=== PATIENT | female | born 1970 | race Caucasian/White ===

== ENCOUNTER 2017-01-26 01:04 | Emergency (ER) ==
[2017-01-26 01:04] VITALS: BMI 25.0
[2017-01-26 01:15] VITALS: BP 116/74; TEMP 97.9
[2017-01-26] MEDS ORDERED: PHENERGAN 25 MG/ML VIAL IM STA (01:51)
[2017-01-26] MEDS ORDERED: DEMEROL 50 MG/ML SYRINGE IM STA (01:51)
--- NOTE | 2017-01-26 01:55 | ED.PDOC ---
General ED Provider: Dr. CARMINA AVERY Chief Complaint: Back Pain Stated Complaint: patient is a 47 year old female who complaints of a 2 week history of left to middle back pain wth non productive cough. The back pain has become worse over the last 24 hours it is now constant and stabbing Time Seen by Physician: 01:53 Mode of Arrival: Walk-In Information Source: Patient Exam Limitations: No limitations Primary Care Provider[facility] Nursing and Triage Documentation Reviewed and Agree: Yes Review of Systems - Review Of Systems Constitutional: Reports: No symptoms Eyes: Reports: No symptoms Ears, Nose, Mouth, Throat: Reports: No symptoms Respiratory: Reports: No symptoms Cardiac: Reports: No symptoms GI: Reports: No symptoms : Reports: No symptoms Musculoskeletal: Reports: Back pain Skin: Reports: No symptoms Neurological: Reports: Anxiety Endocrine: Reports: No symptoms Hematologic/Lymphatic: Reports: No symptoms All Other Systems: Reviewed and Negative Past Medical History - Past Medical History Endocrine: Reports: None Cardiovascular: Reports: None Respiratory: Reports: None Hematological: Reports: None Gastrointestinal: Reports: None Genitourinary: Reports: None Neuro/Psych: Reports: Anxiety, Depression Musculoskeletal: Reports: Arthritis Cancer: Reports: None Last Menstrual Period: PT HAS HAD A HYSTERECTOMY - Surgical History General Surgical History: Reports: Hysterectomy (C SETIONS, HYSTERECTOMY, MECH IMPLANT), , Orthopedic (carple tunnel both wrist ) - Family History Family History: Reports: Unknown - Social History Smoking Status: Current every day smoker, Heavy tobacco smoker Hx Substance Use: No Alcohol Screening: None - Immunizations Tetanus Shot up to Date: (UNKNOWN) Physical Exam - Physical Exam Appearance: Ill-appearing Ill-appearing: Mild Pain Distress: Severe Neck: Supple Respiratory: Airway patent, Breath sounds diminished Cardiovascular: RRR, Pulses normal, No rub, No murmur GI/: Soft, Nontender, No masses, Bowel sounds normal, No Organomegaly Musculoskeletal: Normal strength, ROM intact, No edema, No calf tenderness Skin: Warm, Dry, Normal color Neurological: Sensation intact, Motor intact, Reflexes intact, Cranial nerves intact, Alert, Oriented Psychiatric: Anxious Interpretation - Radiology Interpretation Radiology Interpretation By: ED Physician Radiology Results: Positive Exam Interpreted: CXR (Left lower lobe infiltrate. ) Radiology Interpretation By: Radiologist Radiology Results: Positive (pneumoina/ 3 cm LLL mass) Exam Interpreted: CT Scan Re-Evaluation - Re-Evaluation Status: Improved Critical Care Note - Critical Care Note Total Time (mins): 10 Course - Course Hematology/Chemistry: 01/26/17 03:20 01/26/17 03:20 Orders, Labs, Meds: Lab Review 01/26/17 01/26/17 02:00 03:20 WBC 8.42 RBC 4.44 Hgb 13.1 Hct 39.1 MCV 88.1 MCH 29.5 MCHC 33.5 RDW Coeff of Fernando 12.5 Plt Count 321 Immature Gran % (Auto) 0.2 Neut % (Auto) 61.5 Lymph % (Auto) 25.8 [place] % (Auto) 7.0 Eos % (Auto) 4.8 Baso % (Auto) 0.7 Immature Gran # (Auto) 0.0 Neut # 5.2 Lymph # 2.2 [place] # 0.6 Eos # 0.4 Baso # 0.1 Sodium 139 Potassium 4.0 Chloride 101 Carbon Dioxide 26 Anion Gap 16.0 BUN 16 Creatinine 0.69 Estimated GFR (MDRD) 91.00 BUN/Creatinine Ratio 23.18 Glucose 115 H Lactic Acid 8.2 Calcium 9.5 Total Bilirubin 0.22 AST 13 L ALT 15 Alkaline Phosphatase 118 H Total Protein 8.0 Albumin 3.7 Globulin 4.3 Albumin/Globulin Ratio 0.86 Procalcitonin < 0.05 Urine Color Yellow Urine Clarity Clear Urine pH 5.5 Ur Specific [place] 1.025 Urine Protein Negative Urine Glucose (UA) Negative Urine Ketones Negative Urine Blood Trace-intact Urine Nitrite Negative Urine Bilirubin Negative Urine Urobilinogen 0.2 Ur Leukocyte Esterase Negative Urine Microscopic RBC 2-5 Ur Squamous Epith Cells 10-20 Amorphous Sediment 1+ Influenza A (Rapid) Negative Influenza B (Rapid) Negative Orders Category Date Time Status NPO REMINDER: IMAGING ONCE CARE 01/26/17 05:59 Completed NPO REMINDER: IMAGING ONCE CARE 01/26/17 06:03 Completed ED IV/MEDIPORT/POWERPORT .ONCE EMERGENCY 01/26/17 03:16 Active BLOOD CULTURE Stat LAB 01/26/17 03:20 Received CBC W/ AUTO DIFF Stat LAB 01/26/17 03:20 Completed COMPREHENSIVE METABOLIC PANEL Stat LAB 01/26/17 03:20 Completed LACTIC ACID Stat LAB 01/26/17 03:20 Completed MOLECULAR GROUP A STREP Stat LAB 01/26/17 03:20 Results PROCALCITONIN Stat LAB 01/26/17 03:20 Completed RAPID FLU A/B Stat LAB 01/26/17 03:20 Completed STREP SCREEN Stat LAB 01/26/17 03:20 Results UA [URINALYSIS C & S IF INDICATED] Stat LAB 01/26/17 02:00 Completed 0.9 % Sodium Chloride [Saline Flush] MEDS 01/26/17 03:16 Active 1 syr IVF PRN PRN Hydromorphone HCl [Dilaudid 1 mg/ml Syringe] MEDS 01/26/17 07:35 Stat 1 mg IVP ONCE STA Levofloxacin/D5w [Levaquin] 150 ml MEDS 01/26/17 03:15 Discontinued IV .STK-MED Levofloxacin/D5w [Levaquin] 750 mg MEDS 01/26/17 03:09 Discontinued Premix 150 ml D5w 1 bag IV ONCE Meperidine HCl/Pf [Demerol 50 mg/ml Syringe] MEDS 01/26/17 01:51 Discontinued 50 mg IM ONCE STA Morphine Sulfate [Morphine 4 mg/ml Syringe] MEDS 01/26/17 03:28 Discontinued 4 mg .ROUTE .STK-MED ONE Morphine Sulfate [Morphine 4 mg/ml Syringe] MEDS 01/26/17 03:27 Discontinued 4 mg IVP ONCE STA Promethazine HCl [Phenergan 25 mg/ml Vial] MEDS 01/26/17 01:51 Discontinued 25 mg IM ONCE STA Sodium Chloride 0.9% [Sodium Chloride] 1,000 ml MEDS 01/26/17 03:16 Discontinued IV BOLUS CHEST, 2 VIEWS PA & LAT Stat RADS 01/26/17 02:35 Completed CTA ANGIO CHEST Stat RADS 01/26/17 06:03 Completed Medications Generic Name Dose Route Start Last Admin Trade Name Freq PRN Reason Stop Dose Admin Hydromorphone HCl 1 mg 01/26/17 07:35 Dilaudid 1 Mg/Ml Syringe IVP 01/26/17 07:36 ONCE STA Sodium Chloride 1 syr 01/26/17 03:16 01/26/17 03:32 Saline Flush IVF 1 syr PRN PRN Administration To flush IV Discontinued Medications Generic Name Dose Route Start Last Admin Trade Name Freq PRN Reason Stop Dose Admin Levofloxacin/Dextrose 750 mg/ 150 mls @ 100 mls/hr 01/26/17 03:09 01/26/17 03 :37 Dextrose IV 01/26/17 04:38 100 mls/hr ONCE STA Administration Sodium Chloride 1,000 mls @ 1,000 mls/hr 01/26/17 03:16 01/26/17 03:32 Sodium Chloride IV 01/26/17 04:15 1,000 mls/hr BOLUS STA Administration Meperidine HCl 50 mg 01/26/17 01:51 01/26/17 02:04 Demerol 50 Mg/Ml Syringe IM 01/26/17 01:52 50 mg ONCE STA Administration Morphine Sulfate 4 mg 01/26/17 03:27 01/26/17 03:33 Morphine 4 Mg/Ml Syringe IVP 01/26/17 03:28 4 mg ONCE STA Administration Promethazine HCl 25 mg 01/26/17 01:51 01/26/17 02:04 Phenergan 25 Mg/Ml Vial IM 01/26/17 01:52 25 mg ONCE STA Administration Vital Signs: Temp Pulse Resp BP Pulse Ox 01/26/17 01:05 97.9 F 100 H 18 116/74 98 Departure - Departure Time of Disposition: 07:02 Disposition: HOME SELF-CARE Discharge Problem: Mass of lower lobe of left lung Pneumonia Qualifiers: Pneumonia type: due to unspecified organism Laterality: left Lung location: lower lobe of lung Qualifier Code: (J18.1) Lobar pneumonia, unspecified organism Instructions: Bacterial Pneumonia (ED) Condition: Fair Pt referred to PMD for follow-up: Yes Additional Instructions: push fluids Take amitotics as prescribed Follow up with PCP in 3 days. Must follow up with Lung doctor for left lower lung mass. Prescriptions: Hydrocodone/Acetaminophen [[place] 5-325 Tablet] 1 tab PO Q6HR PRN #20 tablet PRN Reason: PAIN Levofloxacin [Levaquin] 500 mg PO DAILY #10 tablet Allergies/Adverse Reactions: Allergies aspirin Adverse Reaction (Verified 01/26/17 01:18) IMMEDIATE NOSE BLEED IMMEDIATE NOSE BLEED iron Adverse Reaction (Verified 01/26/17 01:18) Swelling SWELLING Home Medications: Ambulatory Orders Hydrocodone/Acetaminophen [[place] 5-325 Tablet] 1 tab PO Q6HR PRN #20 tablet 03/11 Ibuprofen 800 mg PO Q8H PRN 01/26/17 Levofloxacin [Levaquin] 500 mg PO DAILY #10 tablet 01/26/17 Disposition Discussed With: Patient, Family
[2017-01-26 02:11] LABS: BILIRUBIN,URINE Negative (NEGATIVE); KETONES,URINE Negative (NEGATIVE); LEUKOCYTE ESTERASE ,URINE Negative (NEGATIVE); NITRITE,URINE Negative (NEGATIVE); PH,URINE 5.5 (5-9); PROTEIN,URINE Negative (NEGATIVE); URINE, BLOOD Trace-intact (NEGATIVE)
[2017-01-26 02:14] LABS: ADD URINE MICROSCOPIC YES
[2017-01-26] MEDS ORDERED: LEVAQUIN 750 MG in PREMIX 150 ML D5W 1 BAG IV STA (03:09)
[2017-01-26] MEDS ORDERED: LEVAQUIN 150 ML IV ONE (03:15)
[2017-01-26] MEDS ORDERED: SODIUM CHLORIDE 1,000 ML IV STA (03:16)
[2017-01-26 03:27] LABS: BASOPHILS # (AUTO) 0.1 K/uL (0-0.2); BASOPHILS % (AUTO) 0.7 % (0.0-3.0); EOSINOPHILS # (AUTO) 0.4 K/ul (0.0-0.7); EOSINOPHILS % (AUTO) 4.8 % (0.0-7.0); HEMATOCRIT 39.1 % (37.0-47.0); HEMOGLOBIN 13.1 g/dl (12.0-16.0); IMMATURE GRANULOCYTE % (AUTO) 0.2 % (0.0-5.0); LYMPHOCYTES # (AUTO) 2.2 K/uL (0.60-3.4); LYMPHOCYTES % (AUTO) 25.8 (10.0-50.0); MEAN CORPUSCULAR HEMOGLOBIN 29.5 pg (27.0-31.0); MEAN CORPUSCULAR HGB CONC 33.5 (31.8-35.4); MEAN CORPUSCULAR VOLUME 88.1 fl (81.0-99.0); MONOCYTES # (AUTO) 0.6 K/uL (0.4-2.0); NEUTROPHILS # (AUTO) 5.2 K/ul (2.0-6.9); NEUTROPHILS % (AUTO) 61.5; PLATELET COUNT 321 10^3/uL (140-440); RED BLOOD COUNT 4.44 10^6/ul (4.20-5.40); WHITE BLOOD COUNT 8.42 K/ul (4.6-10.2)
[2017-01-26] MEDS ORDERED: MORPHINE 4 MG/ML SYRINGE IVP STA (03:27)
[2017-01-26] MEDS ORDERED: MORPHINE 4 MG/ML SYRINGE ONE (03:28)
[2017-01-26 03:46] LABS: ALBUMIN 3.7 g/dL (3.4-5.0); ALBUMIN/GLOBULIN RATIO 0.86; BILIRUBIN,TOTAL 0.22 mg/dL (0.00-1.20); BUN/CREATININE RATIO 23.18; CALCIUM 9.5 mg/dL (8.2-10.2); CREATININE 0.69 mg/dL (0.60-1.30)
[2017-01-26 03:47] LABS: FLU INTERNAL QC INTERNAL QC VALID; RAPID FLU A NEGATIVE (NEGATIVE); RAPID FLU B NEGATIVE (NEGATIVE)
--- NOTE | 2017-01-26 04:33 | DI ---
EXAM: Chest, two views, 01/26/2017 HISTORY: Cough COMPARISON: 01/30/2016 FINDINGS / IMPRESSION: Cardiomediastinal contours appear within normal limits. Dense left basilar opacity may relate to areas of atelectasis and/or pneumonia. Left pleural effusion is present. There is suggestion of additional opacity in the posterior aspect of the left upper lobe which is be st seen in the lateral projection. Left basilar opacities have worsened as compared to examination performed 01/30/2016. CT chest coul d also be considered for further characterization.
--- NOTE | 2017-01-26 07:31 | CT ---
EXAM: CT angiography chest HISTORY: Abnormal chest radiograph, cough COMPARISON: Radiograph chest same day TECHNIQUE: CT angiography chest performed with intravenous contrast. Coronal and sagittal reformat aurora images obtained. 3-D and MIP reformatted images created. FINDINGS: Thyroid and thoracic inlet appear normal. Heart is normal in size. No pericardial effus ion. Aorta normal in caliber. No aortic dissection. Small hiatal hernia. There are gallstones. Visualized portion upper abdomen demonstrates no acute abnormality. No acute abnormalities of the b ones. Central airway patent. There is a small loculated left pleural effusion. There is a area o f mass-like consolidation in the posterior medial aspect left lower lobe, measuring 3.2 cm image 38, possibly associated with a component of loculated pleural fluid. There is associated left hilar so ft tissue and left hilar lymphadenopathy measuring up to 1.6 cm, image 43. Mildly enlarged subcarin al lymph node measuring 1.1 cm. There are additional areas of atelectasis and/or consolidation in th e left upper lobe and left lower lobe. Mild right basilar atelectasis. Central airway patent. Gra nulomatous calcification present. N filling defects in the pulmonary arteries to suggest a pulmonar y embolism. IMPRESSION: 1. No pulmonary embolism. 2. Unexpected findin.2 cm area of mass-like consolidation left lower lobe. Differential diagn osis includes infection/pneumonia and malignancy. This is associated with a loculated left pleural effusion. Further evaluation is necessary. Consider PET CT, tissue sampling, or CT chest follow-up in 2 - 3 weeks following treatment. There are additional areas of pneumonia and/or atelectasis in the left lung. 3. Left hilar soft tissue/lymphadenopathy and mediastinal lymphadenopathy, likely related to #2. 4. Cholelithiasis Findings call to Dr. Parker 7:25 a.m. 01/26/2017
[2017-01-26] MEDS ORDERED: DILAUDID 1 MG/ML SYRINGE IVP STA (07:35)
== END 2017-01-26 08:21 | disposition home or self-care (01) ==
LOC: ED 01:04
DX: J18.1 Lobar pneumonia, unspecified organism (principal); F17.210 Nicotine dependence, cigarettes, uncomplicated
CPT/HCPCS: 36415; 80053; 81001; 83605; 84145; 85025; 87040; 87651; 87804; 87880; 96361; 96365; 96372; 96375; 99284

== ENCOUNTER 2017-02-02 01:44 | Emergency (ER) ==
[2017-02-02 01:55] VITALS: BP 126/78; TEMP 98.3; BMI 40.7
[2017-02-02] MEDS ORDERED: SODIUM CHLORIDE 1,000 ML IV STA (02:08)
[2017-02-02 02:23] LABS: BASOPHILS # (AUTO) 0.1 K/uL (0-0.2); EOSINOPHILS # (AUTO) 0.3 K/ul (0.0-0.7); EOSINOPHILS % (AUTO) 3.5 % (0.0-7.0); HEMATOCRIT 42.4 % (37.0-47.0); HEMOGLOBIN 14.3 g/dl (12.0-16.0); IMMATURE GRANULOCYTE % (AUTO) 0.1 % (0.0-5.0); LYMPHOCYTES # (AUTO) 2.2 K/uL (0.60-3.4); LYMPHOCYTES % (AUTO) 27.6 (10.0-50.0); MEAN CORPUSCULAR HEMOGLOBIN 29.5 pg (27.0-31.0); MEAN CORPUSCULAR HGB CONC 33.7 (31.8-35.4); MEAN CORPUSCULAR VOLUME 87.6 fl (81.0-99.0); MONOCYTES # (AUTO) 0.5 K/uL (0.4-2.0); MONOCYTES % (AUTO) 6.5 (0-10); NEUTROPHILS # (AUTO) 4.8 K/ul (2.0-6.9); NEUTROPHILS % (AUTO) 61.3; PLATELET COUNT 296 10^3/uL (140-440); RED BLOOD COUNT 4.84 10^6/ul (4.20-5.40)
[2017-02-02 02:43] LABS: ALBUMIN 3.8 g/dL (3.4-5.0); ALBUMIN/GLOBULIN RATIO 0.84; ANION GAP 14.1; BILIRUBIN,TOTAL 0.31 mg/dL (0.00-1.20); BUN/CREATININE RATIO 14.08; CALCIUM 9.7 mg/dL (8.2-10.2); CREATININE 0.71 mg/dL (0.60-1.30); POTASSIUM 4.1 mmol/L (3.5-5.10); TOTAL PROTEIN 8.3 g/dL (6.4-8.2)
[2017-02-02] MEDS ORDERED: ZOFRAN 4 MG/2 ML IVP STA (02:46)
[2017-02-02] MEDS ORDERED: MORPHINE 2 MG/ML SYRINGE IVP STA (02:46)
[2017-02-02 03:02] LABS: CREATINE KINASE 34 U/L
--- NOTE | 2017-02-02 03:09 | CT ---
Exam: CT angiography of the chest History: Cough Technique: [address] of the chest utilizing CT angiography protocol. Multiplanar and th ree-dimensional reformations were performed. FINDINGS: Technically adequate for evaluation of pulmonary arteries and aorta. There are no pulmon demetrio artery filling defects. Small left pleural effusion and adjacent atelectasis. Left hilar mass measures 3.2 x 3.5 cm. The right lung is clear. The heart and pericardium appear normal. The thor acic aorta appears normal. No acute findings of the upper abdomen. Multiple cholelithiasis noted. No acute findings of the chest wall. Impression: 1. Small pleural effusion and left lung mass. No interval change from 01/26/2017. 2. No evidence of pulmonary artery thrombus
[2017-02-02] MEDS ORDERED: DILAUDID 1 MG/ML SYRINGE IVP STA (03:38)
--- NOTE | 2017-02-02 03:41 | ED.PDOC ---
General ED Provider: Dr. ANITA NAVA-ER Chief Complaint: Back Pain Stated Complaint: my back hurts--i have a mass in my lung-- i will see the lung specialist on the of this month--it hurts Time Seen by Physician: 01:50 Mode of Arrival: Walk-In Information Source: Patient Exam Limitations: No limitations Nursing and Triage Documentation Reviewed and Agree: Yes Respiratory Complaint Exam - Respiratory Complaint/Exam Onset/Duration: several days Symptoms Are: Still present Timing: Constant Initial Severity: Mild Current Severity: Moderate Location: Chest Character: Reports: Non-productive cough Aggravating: Reports: None Alleviating: Reports: None Associated Signs and Symptoms: Denies: Rapid breathing, Dyspnea, Fever, Chills, Chest pain, Pleuritic chest pain, Wheezing, Hemoptysis, Dizziness, Calf pain, Calf swelling, Edema, URI, Nasal congestion, Hoarseness, Sinus discomfort, Vomiting, Sore throat, Weight loss, Decreased oral intake, Increased thirst, Increased appetite, Increased urination Related History: Reports: Similar episode (was here a few days ago) History of Healthcare-Acquired Pneumonia: No Cardiac Risk Factors: Reports: Smoking Tuberculosis Risk Factors: Reports: None Status Asthmaticus Risk Factors: Reports: None Home Oxygen Use: No Recent Stress Test: No Recent Echo/LV Function: No Current Antibiotic Use: Yes Current Asthma Medication Use: No Respiratory Distress: None Inadequate Respiratory Effort: No Dysphagia Present: No Stridor Present: No JVD Present: No Accessory Muscle Use: No Retractions: Not Present Diminished Breath Sounds: No Sinus Tenderness: None Grunting Respirations: No Kussmaul Respirations: No Differential Diagnoses: Pneumonia, URI, Other Review of Systems - Review Of Systems Constitutional: Reports: No symptoms Eyes: Reports: No symptoms Ears, Nose, Mouth, Throat: Reports: No symptoms Respiratory: Reports: No symptoms, Other Cardiac: Reports: No symptoms GI: Reports: No symptoms : Reports: No symptoms Musculoskeletal: Reports: Back pain Skin: Reports: No symptoms Neurological: Reports: No symptoms Endocrine: Reports: No symptoms Hematologic/Lymphatic: Reports: No symptoms All Other Systems: Reviewed and Negative Past Medical History - Past Medical History Endocrine: Reports: None Cardiovascular: Reports: None Respiratory: Reports: None Hematological: Reports: None Gastrointestinal: Reports: None Genitourinary: Reports: None Neuro/Psych: Reports: Anxiety, Depression Musculoskeletal: Reports: Arthritis Cancer: Reports: None Last Menstrual Period: 5-6 years ago/hysterectomy - Surgical History General Surgical History: Reports: Hysterectomy (C SETIONS, HYSTERECTOMY, MECH IMPLANT), , Orthopedic (carple tunnel both wrist ) - Family History Family History: Reports: Unknown - Social History Smoking Status: Current every day smoker, Heavy tobacco smoker Hx Substance Use: No Alcohol Screening: None - Immunizations Tetanus Shot up to Date: No (unsure) Physical Exam - Physical Exam Appearance: Well-appearing, No pain distress, Well-nourished Pain Distress: Moderate Eyes: SMITHA, EOMI, Conjunctiva clear ENT: Ears normal, Nose normal, Oropharynx normal Neck: Supple Respiratory: Airway patent, Breath sounds diminished Cardiovascular: RRR, Pulses normal, No rub, No murmur GI/: Soft Musculoskeletal: Normal strength Skin: Warm Neurological: Sensation intact Psychiatric: Affect appropriate Interpretation - Radiology Interpretation Radiology Interpretation By: Radiologist Radiology Results: Positive Exam Interpreted: CT Scan ("no change since 01/26---left lung mass") Re-Evaluation - Re-Evaluation Time of Re-Evaluation: 03:43 Status: Improved Vital Signs Stable: Yes Pain Level: 2 Appearance: NAD Lungs: Clear Skin: Warm and Dry Neuro: Alert and Oriented X3 CV: RRR Critical Care Note - Critical Care Note Total Time (mins): 0 Course - Course Hematology/Chemistry: 02/02/17 02:15 02/02/17 02:15 Orders, Labs, Meds: Lab Review 02/02/17 02:15 WBC 7.80 RBC 4.84 Hgb 14.3 Hct 42.4 MCV 87.6 MCH 29.5 MCHC 33.7 RDW Coeff of [place] 12.3 Plt Count 296 Immature Gran % (Auto) 0.1 Neut % (Auto) 61.3 Lymph % (Auto) 27.6 [place] % (Auto) 6.5 Eos % (Auto) 3.5 Baso % (Auto) 1.0 Immature Gran # (Auto) 0.0 Neut # 4.8 Lymph # 2.2 [place] # 0.5 Eos # 0.3 Baso # 0.1 Sodium 140 Potassium 4.1 Chloride 100 Carbon Dioxide 30 Anion Gap 14.1 BUN 10 Creatinine 0.71 Estimated GFR (MDRD) 88.00 BUN/Creatinine Ratio 14.08 Glucose 109 Calcium 9.7 Total Bilirubin 0.31 AST 26 ALT 55 Alkaline Phosphatase 128 H Total Creatine Kinase 34 Troponin I < 0.0100 Total Protein 8.3 H Albumin 3.8 Globulin 4.5 Albumin/Globulin Ratio 0.84 Amylase 44 Lipase 14 Orders Category Date Time Status EKG-(ED ONLY) Stat CARDIO 02/02/17 02:08 Ordered NPO REMINDER: IMAGING ONCE CARE 02/02/17 02:09 Completed ED IV/MEDIPORT/POWERPORT .ONCE EMERGENCY 02/02/17 02:08 Active AMYLASE Stat LAB 02/02/17 02:15 Completed CBC W/ AUTO DIFF Stat LAB 02/02/17 02:15 Completed COMPREHENSIVE METABOLIC PANEL Stat LAB 02/02/17 02:15 Completed CREATINE KINASE Stat LAB 02/02/17 02:15 Completed LIPASE Stat LAB 02/02/17 02:15 Completed TROPONIN I Stat LAB 02/02/17 02:15 Completed 0.9 % Sodium Chloride [Saline Flush] MEDS 02/02/17 02:08 Ordered 1 syr IVF PRN PRN Hydromorphone HCl [Dilaudid 1 mg/ml Syringe] MEDS 02/02/17 03:38 Stat 1 mg IVP ONCE STA Morphine Sulfate [Morphine 2 mg/ml Syringe] MEDS 02/02/17 02:46 Discontinued 2 mg IVP ONCE STA Ondansetron HCl/Pf [Zofran 4 mg/2 ml] MEDS 02/02/17 02:46 Discontinued 4 mg IVP ONCE STA Sodium Chloride 0.9% [Sodium Chloride] 1,000 ml MEDS 02/02/17 02:08 Active IV 100 mls/hr CT CHEST PE PROTOCOL Stat RADS 02/02/17 02:09 Completed Medications Generic Name Dose Route Start Last Admin Trade Name Freq PRN Reason Stop Dose Admin Sodium Chloride 1,000 mls @ 100 mls/hr 02/02/17 02:08 02/02/17 02:40 Sodium Chloride IV 02/02/17 12:07 100 mls/hr .Q10H STA Administration Sodium Chloride 1 syr 02/02/17 02:08 02/02/17 02:58 Saline Flush IVF 1 syr PRN PRN Administration To flush IV Discontinued Medications Generic Name Dose Route Start Last Admin Trade Name Freq PRN Reason Stop Dose Admin Morphine Sulfate 2 mg 02/02/17 02:46 02/02/17 02:58 Morphine 2 Mg/Ml Syringe IVP 02/02/17 02:47 2 mg ONCE STA Administration Ondansetron HCl 4 mg 02/02/17 02:46 02/02/17 02:55 Zofran 4 Mg/2 Ml IVP 02/02/17 02:47 4 mg ONCE STA Administration Vital Signs: Temp Pulse Resp BP Pulse Ox 02/02/17 01:46 98.3 F 97 H 20 126/78 94 L Departure - Departure Time of Disposition: 03:44 Disposition: HOME SELF-CARE Discharge Problem: Mass of lower lobe of left lung Instructions: Pulmonary Nodules (ED) Condition: Fair Pt referred to PMD for follow-up: Yes Additional Instructions: change antx to bactrim ds bid x 7days--percocet 7.5mg q 4hrs prn pain #20--keep appt with lung specialist this month.. Allergies/Adverse Reactions: Allergies aspirin Adverse Reaction (Verified 01/26/17 01:18) IMMEDIATE NOSE BLEED IMMEDIATE NOSE BLEED iron Adverse Reaction (Verified 01/26/17 01:18) Swelling SWELLING Home Medications: Ambulatory Orders Hydrocodone/Acetaminophen [[place] 5-325 Tablet] 1 tab PO Q6HR PRN #20 tablet 03/11 Ibuprofen 800 mg PO Q8H PRN 01/26/17 Levofloxacin [Levaquin] 500 mg PO DAILY #10 tablet 01/26/17 Disposition Discussed With: Patient
== END 2017-02-02 04:13 | disposition home or self-care (01) ==
LOC: ED 01:44
DX: R91.8 Other nonspecific abnormal finding of lung field (principal); M54.9 Dorsalgia, unspecified; F17.210 Nicotine dependence, cigarettes, uncomplicated
CPT/HCPCS: 36415; 80053; 82150; 82550; 83690; 84484; 85025; 93005; 93010; 96374; 96375; 99283

== ENCOUNTER 2017-02-28 19:02 | Emergency (ER) ==
[2017-02-28 19:08] VITALS: BP 137/87; TEMP 99.1; BMI 23.5
[2017-02-28] MEDS ORDERED: SODIUM CHLORIDE 500 ML IV STA (19:20)
[2017-02-28] MEDS ORDERED: MORPHINE 4 MG/ML SYRINGE IVP STA (19:22)
[2017-02-28] MEDS ORDERED: ZOFRAN 4 MG/2 ML IVP STA (19:22)
[2017-02-28 19:38] LABS: BASOPHILS # (AUTO) 0.1 K/uL (0-0.2); BASOPHILS % (AUTO) 0.7 % (0.0-3.0); EOSINOPHILS # (AUTO) 0.2 K/ul (0.0-0.7); EOSINOPHILS % (AUTO) 2.3 % (0.0-7.0); HEMATOCRIT 43.8 % (37.0-47.0); HEMOGLOBIN 14.8 g/dl (12.0-16.0); IMMATURE GRANULOCYTE % (AUTO) 0.3 % (0.0-5.0); LYMPHOCYTES # (AUTO) 1.8 K/uL (0.60-3.4); LYMPHOCYTES % (AUTO) 17.2 (10.0-50.0); MEAN CORPUSCULAR HEMOGLOBIN 29.4 pg (27.0-31.0); MEAN CORPUSCULAR HGB CONC 33.8 (31.8-35.4); MEAN CORPUSCULAR VOLUME 87.1 fl (81.0-99.0); MONOCYTES # (AUTO) 0.7 K/uL (0.4-2.0); MONOCYTES % (AUTO) 7.2 (0-10); NEUTROPHILS # (AUTO) 7.4 K/ul (2.0-6.9); NEUTROPHILS % (AUTO) 72.3; PLATELET COUNT 312 10^3/uL (140-440); RED BLOOD COUNT 5.03 10^6/ul (4.20-5.40); WHITE BLOOD COUNT 10.18 K/ul (4.6-10.2)
[2017-02-28 19:41] LABS: BILIRUBIN,URINE Negative (NEGATIVE); KETONES,URINE Negative (NEGATIVE); LEUKOCYTE ESTERASE ,URINE Negative (NEGATIVE); NITRITE,URINE Negative (NEGATIVE); PH,URINE 6.5 (5-9); PROTEIN,URINE Negative (NEGATIVE); URINE, BLOOD Negative (NEGATIVE)
[2017-02-28 19:44] LABS: ADD URINE MICROSCOPIC NO
[2017-02-28 20:08] LABS: ALANINE AMINOTRANSFERASE 43 U/L (12-78); ALBUMIN 3.9 g/dL (3.4-5.0); ALBUMIN/GLOBULIN RATIO 0.81; ALKALINE PHOSPHATASE 122 U/L (42-98); ANION GAP 14.1; ASPARTATE AMINO TRANSFERASE 18 U/L (15-37); BILIRUBIN,TOTAL 0.25 mg/dL (0.00-1.20); BLOOD UREA NITROGEN 14 mg/dL (7-18); BUN/CREATININE RATIO 19.17; CALCIUM 9.9 mg/dL (8.2-10.2); CARBON DIOXIDE 30 mmol/L (21-32); CHLORIDE 100 mmol/L (98-107); CREATINE KINASE 27 U/L; CREATININE 0.73 mg/dL (0.60-1.30); GLUCOSE 111 mg/dL (70-110); POTASSIUM 4.1 mmol/L (3.5-5.10); SODIUM 140 mmol/L (136-145); TOTAL PROTEIN 8.7 g/dL (6.4-8.2)
[2017-02-28] MEDS ORDERED: DILAUDID 1 MG/ML SYRINGE IVP STA (20:14)
--- NOTE | 2017-02-28 20:39 | CT ---
Exam: CT of the abdomen and pelvis without contrast History: Left flank pain Technique: [address] of the abdomen and pelvis without intravascular contrast FINDINGS: CT chest CT for lung base detail. No significant liver abnormality. The adrenals, pancrea s and spleen are unremarkable. The stomach and hiatus are unremarkable.Cholelithiasis without perich olecystic inflammation. Kidneys and proximal collecting system are unremarkable. The appendix is nor mal. Bowel loops demonstrate normal caliber. No inflamatory change seen in the mesentery or retroper itoneum. Vascular structures appear normal by noncontrast CT. Small fatty umbilical hernia without complicating features. Colonic diverticulosis of the sigmoid. No inflammation of the pelvic fat. Prior hysterectomy. No acute findings of the skeleton. Impression: 1. No inflammatory process, bowel or urinary obstruction is seen. 2. Cholelithiasis without CT evidence of cholecystitis 3. Colonic diverticulosis of the sigmoid
--- NOTE | 2017-02-28 20:46 | CT ---
EXAM: CT of the chest without contrast History: Left-sided flank pain, left chest pain and rib pain. Comparison: CT abdomen pelvis 02/28/2017, chest CT 07/05/2017 Technique: Multiplanar CT images through the thorax were obtained without the administration of IV contrast Findings: All the heart size is normal. Great vessels are grossly unremarkable on this limited non contrast exam. No significant interval change in the partially loculated left pleural effusion and left lower lobe mass-like area of consolidation. Infiltrates and atelectasis again seen within the lingula and left lower lobe. Calcified granulomas again seen within the thorax. No pathologically enlarged axillary lymph nodes. Evaluation for mediastinal and hilar lymph nodes is limited due to t he lack of contrast administration. For details in the upper abdomen, please see dedicated CT abdomen pelvis done on the same day. The visualized osseous structures unchanged. Impression: No significant interval change in the loculated left pleural effusion, left lung infilt rates and areas of atelectasis. Also no significant interval change in the mass-like area of consol idation within the left lower lobe. These findings could be related to infection or malignancy and recommend correlation with PET CT if not already performed.
--- NOTE | 2017-02-28 21:36 | ED.PDOC ---
General ED Provider: Dr. ANITA NAVA-ER Chief Complaint: Non-specific Complaint Stated Complaint: my chest is really hurting--i am supposed to go to [place] on the and get a biopsy but i am hurting so bad i cant sleep.--percocet is not helping Time Seen by Physician: 19:10 Mode of Arrival: Walk-In Information Source: Patient Exam Limitations: No limitations [facility] Nursing and Triage Documentation Reviewed and Agree: Yes Cardiovascular Complaint Exam - Chest Pain Complaint/Exam Onset: Gradual Duration: several days Symptoms Are: Still present Timing: Intermittent Initial Severity: Moderate Current Severity: Moderate Location: Reports: Discrete, Left lateral Pain Radiates: Reports: None Character: Reports: Dull, Aching, Pressure, Sharp, Stabbing Aggravating: Reports: Movement Alleviating: Reports: None Associated Signs and Symptoms: Denies: Diaphoresis, Nausea, Vomiting, Fever, Palpitations, Cough, Hemoptysis, Back pain, Abdominal pain, Dizziness, Short of air, Calf pain, Calf swelling Related History: Reports: Similar episode Related Surgical History: Reports: None History of Healthcare-Acquired Pneumonia: Reports: No AMI/ACS Risk Factors: Reports: Smoking Pulmonary Embolism Risk Factors: Reports: Smoking Prior Care for this Complaint: Yes Recent Stress Test: No Recent Echo/LV Function: No JVD Present: No Subcutaneous Emphysema Present: No Diminshed Breath Sounds: Yes Reproducible Chest Wall Pain: No Bilateral Pulses Present: Yes Unequal Pulses Noted: No 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 Differential Diagnoses: ACS, Chest Wall Pain Review of Systems - Review Of Systems Constitutional: Reports: No symptoms Eyes: Reports: No symptoms Ears, Nose, Mouth, Throat: Reports: No symptoms Respiratory: Reports: No symptoms Cardiac: Reports: Chest pain GI: Reports: No symptoms : Reports: No symptoms Musculoskeletal: Reports: No symptoms Skin: Reports: No symptoms Neurological: Reports: No symptoms Endocrine: Reports: No symptoms Hematologic/Lymphatic: Reports: No symptoms All Other Systems: Reviewed and Negative Past Medical History - Past Medical History Endocrine: Reports: None Cardiovascular: Reports: None Respiratory: Reports: None Hematological: Reports: None Gastrointestinal: Reports: None Genitourinary: Reports: None Neuro/Psych: Reports: Anxiety, Depression Musculoskeletal: Reports: Arthritis Cancer: Reports: None Last Menstrual Period: HYSTERECTOMY - Surgical History General Surgical History: Reports: Hysterectomy (C SETIONS, HYSTERECTOMY, MECH IMPLANT), , Orthopedic (carple tunnel both wrist ) - Family History Family History: Reports: Unknown - Social History Smoking Status: Current every day smoker, Heavy tobacco smoker Hx Substance Use: No Alcohol Screening: None Lives: With family Physical Exam - Physical Exam Appearance: Well-appearing Pain Distress: Moderate Eyes: SMITHA, EOMI, Conjunctiva clear ENT: Ears normal, Nose normal, Oropharynx normal Neck: Supple Respiratory: Airway patent Cardiovascular: RRR, Pulses normal, No rub, No murmur GI/: Soft, Nontender, No masses, Bowel sounds normal, No Organomegaly Musculoskeletal: Normal strength, ROM intact, No edema, No calf tenderness Skin: Warm, Dry, Normal color Neurological: Sensation intact, Motor intact, Reflexes intact, Cranial nerves intact, Alert, Oriented Psychiatric: Affect appropriate, Mood appropriate Interpretation - Radiology Interpretation Radiology Interpretation By: Radiologist Radiology Results: Positive Exam Interpreted: CT Scan ("3.5cm Left lower lobe mass with loculated pleural effusion") Physician Notification - Case Discussed Physician Notified: dr [email or web address] Time of Notification: 22:13 Critical Care Note - Critical Care Note Total Time (mins): 0 Course - Course Hematology/Chemistry: 02/28/17 19:30 02/28/17 19:30 Orders, Labs, Meds: Lab Review 02/28/17 19:30 WBC 10.18 RBC 5.03 Hgb 14.8 Hct 43.8 MCV 87.1 MCH 29.4 MCHC 33.8 RDW Coeff of Fernando 12.8 Plt Count 312 Immature Gran % (Auto) 0.3 Neut % (Auto) 72.3 Lymph % (Auto) 17.2 [place] % (Auto) 7.2 Eos % (Auto) 2.3 Baso % (Auto) 0.7 Immature Gran # (Auto) 0.0 Neut # 7.4 H Lymph # 1.8 [place] # 0.7 Eos # 0.2 Baso # 0.1 D-Dimer (Manual) 1409.33 Sodium 140 Potassium 4.1 Chloride 100 Carbon Dioxide 30 Anion Gap 14.1 BUN 14 Creatinine 0.73 Estimated GFR (MDRD) 85.00 BUN/Creatinine Ratio 19.17 Glucose 111 H Calcium 9.9 Total Bilirubin 0.25 AST 18 ALT 43 Alkaline Phosphatase 122 H Total Creatine Kinase 27 Troponin I < 0.0100 Total Protein 8.7 H Albumin 3.9 Globulin 4.8 Albumin/Globulin Ratio 0.81 Urine Color Yellow Urine Clarity Clear Urine pH 6.5 Ur Specific [place] 1.015 Urine Protein Negative Urine Glucose (UA) Negative Urine Ketones Negative Urine Blood Negative Urine Nitrite Negative Urine Bilirubin Negative Urine Urobilinogen 0.2 Ur Leukocyte Esterase Negative Orders Category Date Time Status EKG-(ED ONLY) Stat CARDIO 02/28/17 19:20 Completed ED IV/MEDIPORT/POWERPORT .ONCE EMERGENCY 02/28/17 19:20 Active CBC W/ AUTO DIFF Stat LAB 02/28/17 19:30 Completed COMPREHENSIVE METABOLIC PANEL Stat LAB 02/28/17 19:30 Completed CREATINE KINASE Stat LAB 02/28/17 19:30 Completed D-DIMER Stat LAB 02/28/17 19:30 Completed TROPONIN I Stat LAB 02/28/17 19:30 Completed URINALYSIS C & S IF INDICATED Stat LAB 02/28/17 19:30 Completed 0.9 % Sodium Chloride [Saline Flush] MEDS 02/28/17 19:20 Ordered 1 syr IVF PRN PRN Hydromorphone HCl [Dilaudid 1 mg/ml Syringe] MEDS 02/28/17 20:14 Discontinued 1 mg IVP ONCE STA Morphine Sulfate [Morphine 4 mg/ml Syringe] MEDS 02/28/17 19:22 Discontinued 4 mg IVP ONCE STA Ondansetron HCl/Pf [Zofran 4 mg/2 ml] MEDS 02/28/17 19:22 Discontinued 4 mg IVP ONCE STA Sodium Chloride 0.9% [Sodium Chloride] 500 ml MEDS 02/28/17 19:20 Active IV 30 mls/hr CT ABDOMEN/PELVIS WO CONTRAST Stat RADS 02/28/17 19:[address] CHEST W/O CONTRAST Stat RADS 02/28/17 19:22 Completed Medications Generic Name Dose Route Start Last Admin Trade Name Freq PRN Reason Stop Dose Admin Sodium Chloride 500 mls @ 30 mls/hr 02/28/17 19:20 02/28/17 19:44 Sodium Chloride IV 03/01/17 11:59 30 mls/hr .[id number] STA Administration Sodium Chloride 1 syr 02/28/17 19:20 Saline Flush IVF PRN PRN To flush IV Discontinued Medications Generic Name Dose Route Start Last Admin Trade Name Freq PRN Reason Stop Dose Admin Hydromorphone HCl 1 mg 02/28/17 20:14 02/28/17 20:30 Dilaudid 1 Mg/Ml Syringe IVP 02/28/17 20:15 1 mg ONCE STA Administration Morphine Sulfate 4 mg 02/28/17 19:22 02/28/17 19:43 Morphine 4 Mg/Ml Syringe IVP 02/28/17 19:23 4 mg ONCE STA Administration Ondansetron HCl 4 mg 02/28/17 19:22 02/28/17 19:44 Zofran 4 Mg/2 Ml IVP 02/28/17 19:23 4 mg ONCE STA Administration Vital Signs: Temp Pulse Resp BP Pulse Ox 02/28/17 19:04 99.1 F 122 H 20 137/87 92 L GENI Risk Score GENI Risk Score: Risk Score Odds of by 30D 0 0.1 (0.1-0.2) 1 0.3 (0.2-0.3) 2 0.4 (0.3-0.5) 3 0.7 (0.6-0.9) 4 1.2 (1.0-1.5) 5 2.2 (1.9-2.6) 6 3.0 (2.5-3.6) 7 4.8 (3.8-6.1) Departure - Departure Time of Disposition: 22:14 Disposition: TSF SHORT-TRM HOSP Discharge Problem: Lung mass Instructions: Soft Tissue Mass (ED) Condition: Good Pt referred to PMD for follow-up: No Allergies/Adverse Reactions: Allergies aspirin Adverse Reaction (Verified 02/28/17 19:08) IMMEDIATE NOSE BLEED IMMEDIATE NOSE BLEED iron Adverse Reaction (Verified 02/28/17 19:08) Swelling SWELLING Home Medications: Ambulatory Orders 1 [No Reported Medications] 02/28/17 Transfer Form Completed: Yes Disposition Discussed With: Patient
[2017-03-01] MEDS: DILAUDID 1 MG/ML SYRINGE IVP PRN ×3 (00:16→07:45)
== END 2017-03-01 08:38 | disposition short-term general hospital (02) ==
LOC: ED 19:02
DX: R91.8 Other nonspecific abnormal finding of lung field (principal); R07.9 Chest pain, unspecified; F17.210 Nicotine dependence, cigarettes, uncomplicated
CPT/HCPCS: 36415; 80053; 81001; 82550; 84484; 85025; 85379; 93005; 93010; 96374; 96375; 96376; 99285

== ENCOUNTER 2017-03-01 08:32 | Outpatient (CLI) ==
[2017-02-28 19:08] VITALS: BMI 23.5
== END 2017-03-01 08:33 ==
LOC: AMBL 08:32
PROVIDERS: ATTEND Internal Medicine
DX: R07.89 Other chest pain (principal); R06.02 Shortness of breath; R51 Headache; R91.8 Other nonspecific abnormal finding of lung field

== ENCOUNTER 2017-03-14 10:12 | Emergency (ER) ==
[2017-03-14 10:22] VITALS: BP 129/89; TEMP 97.8; BMI 24.1
[2017-03-14 10:48] LABS: BASOPHILS # (AUTO) 0.1 K/uL (0-0.2); BASOPHILS % (AUTO) 0.8 % (0.0-3.0); EOSINOPHILS # (AUTO) 0.2 K/ul (0.0-0.7); EOSINOPHILS % (AUTO) 2.5 % (0.0-7.0); HEMATOCRIT 42.1 % (37.0-47.0); HEMOGLOBIN 14.5 g/dl (12.0-16.0); IMMATURE GRANULOCYTE % (AUTO) 0.3 % (0.0-5.0); LYMPHOCYTES # (AUTO) 1.3 K/uL (0.60-3.4); LYMPHOCYTES % (AUTO) 14.3 (10.0-50.0); MEAN CORPUSCULAR HEMOGLOBIN 29.9 pg (27.0-31.0); MEAN CORPUSCULAR HGB CONC 34.4 (31.8-35.4); MEAN CORPUSCULAR VOLUME 86.8 fl (81.0-99.0); MONOCYTES # (AUTO) 0.6 K/uL (0.4-2.0); NEUTROPHILS # (AUTO) 6.9 K/ul (2.0-6.9); NEUTROPHILS % (AUTO) 75.1; PLATELET COUNT 350 10^3/uL (140-440); RED BLOOD COUNT 4.85 10^6/ul (4.20-5.40); WHITE BLOOD COUNT 9.18 K/ul (4.6-10.2)
[2017-03-14 11:01] LABS: ALBUMIN 3.7 g/dL (3.4-5.0); ALBUMIN/GLOBULIN RATIO 0.84; BILIRUBIN,TOTAL 0.34 mg/dL (0.00-1.20); BUN/CREATININE RATIO 17.39; CALCIUM 9.8 mg/dL (8.2-10.2); CREATININE 0.69 mg/dL (0.60-1.30); TOTAL PROTEIN 8.1 g/dL (6.4-8.2)
--- NOTE | 2017-03-14 11:13 | DI ---
EXAM: Chest two views HISTORY: Cough, recent lung biopsy COMPARISON: CT 02/28/2017 TECHNIQUE: Two views of the chest were performed FINDINGS: There is a loculated left pleural effusion and left basilar consolidation. No pneumothora x. The heart is normal in size. The mediastinal contour is normal. There are no acute abnormaliti es of the bones. IMPRESSION: Loculated left pleural effusion with with left basilar consolidation. Mass-like consol idation was demonstrated on CT 02/28/2017. Differential diagnosis includes infection/pneumonia and malignancy.
--- NOTE | 2017-03-14 11:53 | ED.PDOC ---
General ED Provider: Dr. MARLA MERLOS Chief Complaint: Non-specific Complaint Stated Complaint: weakness Time Seen by Physician: 10:13 Mode of Arrival: Walk-In Information Source: Patient Exam Limitations: No limitations Nursing and Triage Documentation Reviewed and Agree: Yes Miscellaneous Complaint Exam - Complex/Multi-System Complaint/Exam Onset/Duration: biopsy for a lung lesion since biopsy had been feeling weak Symptoms Are: Still present Initial Severity: Mild Current Severity: None Associated Signs and Symptoms: Denies: Decreased responsiveness, Confusion, Agitation, Dizziness, Weakness, Syncope, Headache, Short of air, Cough, Wheezing , Hemoptysis, Chest pain, Palpitations, Edema, Nausea, Vomiting, Diarrhea, Abdominal pain, Back pain, Dysuria, Hematemesis, Melena, Decreased oral intake, Fever, Diaphoresis, Immunocompromised, Anticoagulation Therapy, Recent medication changes, Indwelling medical insurance coding specialist, Prior MRSA, Prior VRE, Recent trauma, Remote trauma Recent Echo/LV Function: No Respiratory Distress: None JVD Present: No Tachypnea Present: No Stridor Present: No Abdominal Findings: Present: Normal findings Glascow Coma Scale (see protocol): 15 Meningeal Signs Positive: No Focal Weakness: Present: None Focal Sensory Loss: Present: None Gait: Normal Gag Reflex Present: Yes Review of Systems - Review Of Systems Constitutional: Reports: Malaise, Weakness Eyes: Reports: No symptoms Ears, Nose, Mouth, Throat: Reports: No symptoms Respiratory: Reports: No symptoms Cardiac: Reports: No symptoms GI: Reports: No symptoms : Reports: No symptoms Musculoskeletal: Reports: No symptoms Skin: Reports: No symptoms Neurological: Reports: No symptoms Endocrine: Reports: No symptoms Hematologic/Lymphatic: Reports: No symptoms All Other Systems: Reviewed and Negative Past Medical History - Past Medical History Endocrine: Reports: None Cardiovascular: Reports: None Respiratory: Reports: None Hematological: Reports: None Gastrointestinal: Reports: None Genitourinary: Reports: None Neuro/Psych: Reports: Anxiety, Depression Musculoskeletal: Reports: Arthritis Cancer: Reports: None Last Menstrual Period: hysterectomy - Surgical History General Surgical History: Reports: Hysterectomy (C SETIONS, HYSTERECTOMY, MECH IMPLANT), , Orthopedic (carple tunnel both wrist ) - Family History Family History: Reports: Unknown - Social History Smoking Status: Current every day smoker, Light tobacco smoker Hx Substance Use: No Alcohol Screening: None Physical Exam - Physical Exam Appearance: Well-appearing, No pain distress, Well-nourished Eyes: SMITHA, EOMI, Conjunctiva clear ENT: Ears normal, Nose normal, Oropharynx normal Respiratory: Airway patent, Breath sounds clear, Breath sounds equal, Respirations nonlabored Cardiovascular: RRR, Pulses normal, No rub, No murmur GI/: Soft, Nontender, No masses, Bowel sounds normal, No Organomegaly Musculoskeletal: Normal strength, ROM intact, No edema, No calf tenderness Skin: Warm, Dry, Normal color Neurological: Sensation intact, Motor intact, Reflexes intact, Cranial nerves intact, Alert, Oriented Psychiatric: Affect appropriate, Mood appropriate Interpretation - Radiology Interpretation Radiology Interpretation By: Radiologist Radiology Results: No acute changes Critical Care Note - Critical Care Note Total Time (mins): 0 Course - Course Hematology/Chemistry: 03/14/17 10:30 03/14/17 10:30 Orders, Labs, Meds: Lab Review 03/14/17 10:30 WBC 9.18 RBC 4.85 Hgb 14.5 Hct 42.1 MCV 86.8 MCH 29.9 MCHC 34.4 RDW Coeff of Fernando 13.5 Plt Count 350 Immature Gran % (Auto) 0.3 Neut % (Auto) 75.1 Lymph % (Auto) 14.3 [place] % (Auto) 7.0 Eos % (Auto) 2.5 Baso % (Auto) 0.8 Immature Gran # (Auto) 0.0 Neut # 6.9 Lymph # 1.3 [place] # 0.6 Eos # 0.2 Baso # 0.1 Sodium 140 Potassium 4.0 Chloride 101 Carbon Dioxide 27 Anion Gap 16.0 BUN 12 Creatinine 0.69 Estimated GFR (MDRD) 91.00 BUN/Creatinine Ratio 17.39 Glucose 128 H Calcium 9.8 Total Bilirubin 0.34 AST 29 ALT 52 Alkaline Phosphatase 101 H Total Protein 8.1 Albumin 3.7 Globulin 4.4 Albumin/Globulin Ratio 0.84 Orders Category Date Time Status CBC W/ AUTO DIFF Stat LAB 03/14/17 10:30 Completed COMPREHENSIVE METABOLIC PANEL Stat LAB 03/14/17 10:30 Completed CHEST, 2 VIEWS PA & LAT Stat RADS 03/14/17 10:29 Completed Vital Signs: Temp Pulse Resp BP Pulse Ox 03/14/17 10:13 97.8 F 122 H 20 129/89 93 L Departure - Departure Time of Disposition: 11:52 Disposition: HOME SELF-CARE Discharge Problem: Weakness Instructions: Weakness (ED) Condition: Good Pt referred to PMD for follow-up: No Allergies/Adverse Reactions: Allergies aspirin Adverse Reaction (Verified 03/14/17 10:22) IMMEDIATE NOSE BLEED IMMEDIATE NOSE BLEED iron Adverse Reaction (Verified 03/14/17 10:22) Swelling SWELLING Home Medications: Ambulatory Orders Acetaminophen [Non-Aspirin Extra Strength] 500 mg PO Q4HR PRN 03/14/17 Oxycodone HCl [Oxycodone] 5 mg PO Q4H PRN 03/14/17
== END 2017-03-14 12:26 | disposition home or self-care (01) ==
LOC: ED 10:12
DX: R53.1 Weakness (principal); Z98.890 Other specified postprocedural states; F17.210 Nicotine dependence, cigarettes, uncomplicated
CPT/HCPCS: 36415; 80053; 85025; 99282

== ENCOUNTER 2017-04-13 00:45 | Emergency (ER) ==
[2017-04-13 00:54] VITALS: BP 127/82; TEMP 98.3; BMI 22.7
--- NOTE | 2017-04-13 02:11 | CT ---
EXAM: CT scan abdomen pelvis without contrast HISTORY: Constipation COMPARISON: CT scan abdomen pelvis 02/28/2017 FINDINGS: Helically acquired axial images obtained through the abdomen pelvis without contrast util izing 3-mm collimation. Sagittal coronal reconstructions were imaged and reviewed.. Several new sm all nodules noted at the right lung base ranging in size from 2-6 mm. There is a new small right pl eural effusion with adjacent atelectasis and/or infiltrate. There is left pleural effusion with inc reasing consolidation at the left lung base.. There is a small amount of abdominal pelvic ascites. Gallstones are seen within the gallbladder. The liver pancreas spleen and adrenal glands have norm al unenhanced CT appearance. The kidneys are morphologically normal. The abdominal aorta is normal course caliber. There is a small umbilical hernia containing fat.. There is diverticulosis without diverticulitis.. There is stable central depression of the superior endplate of L1 and L4. IMPRESSION: Interval development small right pleural effusion with adjacent atelectasis and/or pneumonia. Redemonstrated is a small left effusion with increasing left basilar consolidation. Cholelithiasis. Small amount of abdominal and pelvic ascites. Diverticulosis without diverticulitis
--- NOTE | 2017-04-13 02:20 | ED.PDOC ---
General ED Provider: Dr. ANITA NAVA-ER Chief Complaint: Constipation Stated Complaint: i might be constipated--im living on ana Time Seen by Physician: 00:50 Mode of Arrival: Wheelchair Information Source: Patient, Family Exam Limitations: No limitations Nursing and Triage Documentation Reviewed and Agree: Yes Musculoskeletal Complaint Exam - Back Pain Complaint/Exam Mechanism of Injury: Reports: No known trauma Onset/Duration: several days Symptoms Are: Still present Timing: Constant Initial Severity: Mild Current Severity: Mild Location: Reports: Discrete Character: Reports: Dull, Aching Alleviating: Reports: None Associated Signs and Symptoms: Reports: Abdominal pain, Flank pain. Denies: Swelling, Redness, Bruising, Fever, Weakness, Numbness, Tingling, Bladder incontinence, Bowel incontinence, Weight loss, Pain with weight bearing AAA Risk Factors: Reports: None Cauda Equina Risk Factors: Reports: None Epidural Abcess Risk Factors: Reports: None Related Surgical History: Reports: None Focal Tenderness: No Paraspinal Muscle Tenderness: No Paraspinal Muscle Spasm: No Scoliosis: No Lordosis: No Kyphosis: No SLR Test: Right Negative, Left Negative Hip Motion Testing Pain: Right Negative, Left Negative Focal Weakness: Present: None Focal Sensory Loss: Present: None Gait: Present: Abnormal Differential Diagnoses: Herniated Disk, Strain, Sprain Review of Systems - Review Of Systems Constitutional: Reports: No symptoms Eyes: Reports: No symptoms Ears, Nose, Mouth, Throat: Reports: No symptoms Respiratory: Reports: No symptoms Cardiac: Reports: No symptoms GI: Reports: No symptoms : Reports: No symptoms Musculoskeletal: Reports: Back pain, Muscle pain Skin: Reports: No symptoms Neurological: Reports: No symptoms Endocrine: Reports: No symptoms Hematologic/Lymphatic: Reports: No symptoms All Other Systems: Reviewed and Negative Past Medical History - Past Medical History Endocrine: Reports: None Cardiovascular: Reports: None Respiratory: Reports: None Hematological: Reports: None Gastrointestinal: Reports: None Genitourinary: Reports: None Neuro/Psych: Reports: Anxiety, Depression Musculoskeletal: Reports: Arthritis Cancer: Reports: None Last Menstrual Period: PT HAS HAD A HYSTERECTOMY - Surgical History General Surgical History: Reports: Hysterectomy (C SETIONS, HYSTERECTOMY, MECH IMPLANT), , Orthopedic (carple tunnel both wrist ) - Family History Family History: Reports: Unknown - Social History Smoking Status: Current every day smoker, Light tobacco smoker Hx Substance Use: No Alcohol Screening: None - Immunizations Tetanus Shot up to Date: (UNKNOWN) Physical Exam - Physical Exam Appearance: Well-appearing, No pain distress, Well-nourished Pain Distress: Mild Eyes: SMITHA, EOMI, Conjunctiva clear ENT: Ears normal, Nose normal, Oropharynx normal Neck: Supple Respiratory: Airway patent, Breath sounds clear, Breath sounds equal, Respirations nonlabored Cardiovascular: RRR, Pulses normal, No rub, No murmur GI/: Soft, Nontender, No masses, Bowel sounds normal Musculoskeletal: Normal strength Skin: Warm, Dry, Normal color Neurological: Sensation intact, Motor intact, Reflexes intact, Cranial nerves intact, Alert, Oriented Psychiatric: Affect appropriate, Mood appropriate Interpretation - Radiology Interpretation Radiology Interpretation By: Radiologist Radiology Results: Negative Exam Interpreted: CT Scan Critical Care Note - Critical Care Note Total Time (mins): 0 Course - Course Orders, Labs, Meds: Orders Category Date Time Status Enema [ED ENEMA/RECTAL TUBE] .ONCE EMERGENCY 04/13/17 01:[address] ABDOMEN/PELVIS WO CONTRAST Stat RADS 04/13/17 01:37 Completed Vital Signs: Temp Pulse Resp BP Pulse Ox 04/13/17 00:46 98.3 F 122 H 20 127/82 91 L Departure - Departure Time of Disposition: 02:20 Disposition: HOME SELF-CARE Discharge Problem: Constipation Instructions: Constipation (ED) Condition: Good Pt referred to PMD for follow-up: Yes Additional Instructions: continue meds for constipation--f/u with oncologisg Allergies/Adverse Reactions: Allergies aspirin Adverse Reaction (Verified 04/13/17 00:54) IMMEDIATE NOSE BLEED IMMEDIATE NOSE BLEED iron Adverse Reaction (Verified 04/13/17 00:54) Swelling SWELLING varenicline [From Chantix] Adverse Reaction (Verified 04/13/17 00:54) NIGHT MARX Home Medications: Ambulatory Orders Oxycodone HCl [Oxycodone] 10 mg PO Q4H 03/14/17 Morphine Sulfate [Ms Contin] 45 mg PO Q12HR 04/13/17 Naloxegol Oxalate [Movantik] 12.5 mg PO DIRECTED PRN 04/13/17 Disposition Discussed With: Patient, Family
== END 2017-04-13 02:45 | disposition home or self-care (01) ==
LOC: ED 00:45
DX: K59.00 Constipation, unspecified (principal)
CPT/HCPCS: 99283

== ENCOUNTER 2017-04-28 17:41 | Outpatient (CLI) | END 2017-04-28 17:42 | disposition home or self-care (01) | LOC: AMBL 17:41 | PROVIDERS: ATTEND Emergency Medicine | DX: M25.552 Pain in left hip (principal); M79.652 Pain in left thigh; K59.00 Constipation, unspecified; C34.90 Malignant neoplasm of unspecified part of unspecified bronchus or lung ==

== ENCOUNTER 2017-05-08 20:17 | Outpatient (CLI) ==
[2017-05-08 20:46] VITALS: BMI 24.0
== END 2017-05-08 20:18 | disposition critical access hospital (66) ==
LOC: AMBL 20:17
PROVIDERS: ATTEND Emergency Medicine
DX: I46.9 Cardiac arrest, cause unspecified (principal); C34.90 Malignant neoplasm of unspecified part of unspecified bronchus or lung

== ENCOUNTER 2017-05-08 20:25 | Emergency (ER) ==
[2017-05-08 20:43] LABS: BASOPHILS % (AUTO) 0.8 % (0.0-3.0); EOSINOPHILS # (AUTO) 0.1 K/ul (0.0-0.7); EOSINOPHILS % (AUTO) 2.3 % (0.0-7.0); HEMATOCRIT 41.8 % (37.0-47.0); HEMOGLOBIN 14.6 g/dl (12.0-16.0); IMMATURE GRANULOCYTE % (AUTO) 0.2 % (0.0-5.0); LYMPHOCYTES # (AUTO) 1.7 K/uL (0.60-3.4); LYMPHOCYTES % (AUTO) 32.4 (10.0-50.0); MEAN CORPUSCULAR HEMOGLOBIN 31.6 pg (27.0-31.0); MEAN CORPUSCULAR HGB CONC 34.9 (31.8-35.4); MEAN CORPUSCULAR VOLUME 90.5 fl (81.0-99.0); MONOCYTES # (AUTO) 0.5 K/uL (0.4-2.0); MONOCYTES % (AUTO) 9.8 (0-10); NEUTROPHILS # (AUTO) 2.8 K/ul (2.0-6.9); NEUTROPHILS % (AUTO) 54.5; PLATELET COUNT 188 10^3/uL (140-440); RED BLOOD COUNT 4.62 10^6/ul (4.20-5.40); WHITE BLOOD COUNT 5.21 K/ul (4.6-10.2)
--- NOTE | 2017-05-08 20:44 | ED.PDOC ---
General ED Provider: Dr. FELICE BRUNO Stated Complaint: Patient daughter found her unresponsive at home, and eye rolled up, daughter started the CPR and called ambulance, Time Seen by Physician: 20:42 Mode of Arrival: Ambulance Information Source: Family Nursing and Triage Documentation Reviewed and Agree: Yes Cardiac Resuscitation - Cardiac Resuscitation Onset/Duration: Minutes Witnessed Arrest: Yes Airway Prehospital Findings: Reports: Obstructed, Gag reflex absent Breathing Prehospital Findings: Reports: Apnea Circulation/Rhythm Prehospital Findings: Reports: Asystole Disability/Neurological Prehospital Findings: Reports: Unresponsive Airway Prehospital Intervention: Reports: Oral airway Breathing Prehospital Intervention: Reports: Oxygen, Bag-valve mask Circulation/Rhythm Prehospital Intervention: Reports: Chest compressions Breathing Prehospital Response: Present: Equal breath sounds Circulation/Rhythm Prehospital Response: Present: Asystole Airway ED Findings: Gag reflex absent Breathing ED Findings: Present: Apnea Circulation/Rhythm ED Findings: Present: Asystole Disability/Neurological ED Findings: Present: Unresponsive Airway ED Intervention: Oral airway Breathing ED Intervention: Oxygen Circulation/Rhythm ED Intervention: Chest compressions Airway ED Response: posiitive Breathing ED Response: ETT in airway, Equal breath sounds Circulation/Rhythm ED Response: Present: Sinus Tachycardia Right Pupil: Fixed Left Pupil: Fixed Review Of Systems: Unable due to extremis EMS/Code Sheet Reviewed: Yes Patient is a DNR: No Patient Has a Living Will: No Resuscitation Successful: Yes Differential Diagnoses: Respiratory Failure Quality Indicator For Non-Traumatic Chest Pain/Syncope: EKG Performed Past Medical History - Past Medical History Endocrine: Reports: None Cardiovascular: Reports: None Respiratory: Reports: None Hematological: Reports: None Gastrointestinal: Reports: None Genitourinary: Reports: None Neuro/Psych: Reports: Anxiety, Depression Musculoskeletal: Reports: Arthritis Cancer: Reports: Lung (stage 4 ) - Surgical History General Surgical History: Reports: Hysterectomy (C SETIONS, HYSTERECTOMY, MECH IMPLANT), , Orthopedic (carple tunnel both wrist ) - Family History Family History: Reports: Unknown - Social History Smoking Status: Current every day smoker, Light tobacco smoker Hx Substance Use: No Alcohol Screening: None Procedures - Intubation Indication: Present: Respiratory Insufficiency, Altered Mental Status Time of Intubation: 20:25 Type of Tube Used: Endotracheal Cricoid Pressure Used: No Tube Vogel Used: No Suction Used: Yes Glidescope Used: No CO2 Detector Used: Yes Lung Sounds Equal Bilaterally: Yes Intubation Complications: Present: No complications Tube Inserted By: dr bruno, Tube Placement Verified by X-ray: Yes Critical Care Note - Critical Care Note Total Time (mins): 30 Course - Course Hematology/Chemistry: 05/08/17 20:20 05/08/17 20:20 Orders, Labs, Meds: Lab Review 05/08/17 05/08/17 20:20 20:43 WBC 5.21 RBC 4.62 Hgb 14.6 Hct 41.8 MCV 90.5 MCH 31.6 H MCHC 34.9 RDW Coeff of Fernando 13.2 Plt Count 188 Immature Gran % (Auto) 0.2 Neut % (Auto) 54.5 Lymph % (Auto) 32.4 Traill % (Auto) 9.8 Eos % (Auto) 2.3 Baso % (Auto) 0.8 Immature Gran # (Auto) 0.0 Neut # 2.8 Lymph # 1.7 Traill # 0.5 Eos # 0.1 Baso # 0.0 Puncture Site Rb O2 Saturation 100.0 ABG pH 6.931 L* ABG pCO2 88.4 H ABG pO2 296.0 H ABG HCO3 18.6 L ABG Total CO2 21 L ABG Base Excess -14 L Nathan Test + O2 Delivery Device Ambu Oxygen Liter Flow 15.00 FiO2 % 100.0 Sodium 134 L Potassium 6.4 H* Chloride 89 L Carbon Dioxide 19 L Anion Gap 32.4 BUN 53 H Creatinine 1.43 H Estimated GFR (MDRD) 39.00 BUN/Creatinine Ratio 37.06 Glucose 67 L Calcium 12.4 H Total Bilirubin 0.52 AST 27 ALT 18 Alkaline Phosphatase 132 H Total Creatine Kinase 54 Troponin I Pending Total Protein 6.8 Albumin 1.9 L Globulin 4.9 Albumin/Globulin Ratio 0.39 Orders Category Date Time Status ABG Stat LAB 05/08/17 20:43 Completed CBC W/ AUTO DIFF Stat LAB 05/08/17 20:20 Completed COMPREHENSIVE METABOLIC PANEL Stat LAB 05/08/17 20:20 Results CREATINE KINASE Stat LAB 05/08/17 20:20 Results D-DIMER Stat LAB 05/08/17 20:45 Received TROPONIN I Stat LAB 05/08/17 20:20 Results Dopamine HCl/D5w [Dopamine] 250 ml MEDS 05/08/17 20:59 Discontinued IV .STK-MED CHEST, 1V AP ONLY Stat RADS 05/08/17 20:[address] HEAD W/O CONTRAST Stat RADS 05/08/17 20:39 Ordered Vital Signs: Temp Pulse Resp BP Pulse Ox 05/08/17 21:07 20 05/08/17 20:33 94.7 F L 0 L 0 L 5/4 L 0 L Departure - Departure Time of Disposition: 21:18 Disposition: TSF SHORT-TRM HOSP Discharge Problem: Cardiac arrest Instructions: Needle Biopsy of the Lung (ED) Condition: Critical Pt referred to PMD for follow-up: No Additional Instructions: patients pulse dropped again, code started , epi, soda bicarb given, pulse came back, planed for dopamin, mean while the pulse started dropping, talked to family. wants stop the aggressive management. Patient family requested to take off the ventilator support, Allergies/Adverse Reactions: Allergies aspirin Adverse Reaction (Verified 04/13/17 00:54) IMMEDIATE NOSE BLEED IMMEDIATE NOSE BLEED iron Adverse Reaction (Verified 04/13/17 00:54) Swelling SWELLING varenicline [From Chantix] Adverse Reaction (Verified 04/13/17 00:54) NIGHT MARX Home Medications: Ambulatory Orders Oxycodone HCl [Oxycodone] 10 mg PO Q4H 03/14/17 Morphine Sulfate [Ms Contin] 45 mg PO Q12HR 04/13/17 Naloxegol Oxalate [Movantik] 12.5 mg PO DIRECTED PRN 04/13/17 Disposition Discussed With: Patient, Family
[2017-05-08 20:46] VITALS: TEMP 94.7; BMI 24.0
[2017-05-08 20:46] LABS: ABG PH 6.931 (7.35-7.45)
[2017-05-08 20:47] LABS: ABG BASE EXCESS -14 (-2.0-2.0); ABG HCO3 18.6 (22.0-26.0); ABG PCO2 88.4 mmHg (35-45); ABG TCO2 21 (22.0-28.0)
[2017-05-08 20:56] LABS: ALBUMIN 1.9 g/dL (3.4-5.0); ALBUMIN/GLOBULIN RATIO 0.39; ANION GAP 32.4; BILIRUBIN,TOTAL 0.52 mg/dL (0.00-1.20); BUN/CREATININE RATIO 37.06; CALCIUM 12.4 mg/dL (8.2-10.2); CREATININE 1.43 mg/dL (0.60-1.30); TOTAL PROTEIN 6.8 g/dL (6.4-8.2)
[2017-05-08 20:57] LABS: POTASSIUM 6.4 mmol/L (3.5-5.10)
[2017-05-08] MEDS ORDERED: DOPAMINE IV ONE (20:59)
[2017-05-08 21:30] VITALS: BP 00/00
[2017-05-08] MEDS ORDERED: EPINEPHRINE 1:10,000 SYRINGE IV STA ×3 (21:30)
[2017-05-08] MEDS ORDERED: SODIUM BICARBONATE 7.5% IVP STA ×2 (21:34→21:37)
[2017-05-08 21:38] LABS: TROPONIN I 0.024 ng/ml (0.0000-0.4000)
--- NOTE | 2017-05-09 07:41 | DI ---
EXAM: Single view of the chest. History: Intubation. Comparison: Chest radiograph 03/14/2017 Findings: Heart size is within normal limits. Endotracheal tube tip at the level of the clavicles. No pneumothorax. Near-complete opacification of the left hemithorax. No acute osseous abnormalit ies. Impression: 1. Endotracheal tube with tip at the level of the clavicles. 2. Near-complete opacification of the left hemithorax most likely due to a combination of pneumonia and atelectasis.
== END 2017-05-08 21:08 | disposition expired ==
LOC: ED 20:25
DX: I46.9 Cardiac arrest, cause unspecified (principal); C34.90 Malignant neoplasm of unspecified part of unspecified bronchus or lung; Z79.899 Other long term (current) drug therapy; F17.210 Nicotine dependence, cigarettes, uncomplicated
CPT/HCPCS: 36415; 80053; 82550; 82803; 84484; 85025; 85379; 93005; 93010; 96360; 96361; 96374; 96375; 96376; 99291